=== PATIENT | male | born 1950 | race Caucasian/White ===

== ENCOUNTER 2022-02-02 15:18 | Inpatient (IN) ==
[2022-02-02] MEDS ORDERED: *HR* FentaNYL (PF) 100 MCG/2 ML VIAL IVP ONE (15:26)
[2022-02-02 16:56] LABS: Troponin I 0.11 ng/mL (< 0.04)
[2022-02-02 17:25] LABS: Alanine Aminotransferase 9 Units/L (7-52); Albumin 3.9 g/dL (3.5-5.7); Albumin/Globulin Ratio 1.7 (1.1-2.2); Alkaline Phosphatase 59 Units/L (34-104); Aspartate Amino Transferase 19 Units/L (13-39); Bilirubin,Direct 0.1 mg/dL (0.0-0.2); Bilirubin,Indirect 0.3 mg/dL (0.0-1.0); Bilirubin,Total 0.4 mg/dL (0.3-1.0); Globulin 2.3 g/dL (2.4-3.5); Lipase 21 Units/L (11-82); Total Protein 6.2 g/dL (6.4-8.9)
[2022-02-02] MEDS ORDERED: *HR* Heparin 5,000 UNIT/ML VIAL IVP ONE (18:41)
[2022-02-02] MEDS ORDERED: *HR* Heparin 5,000 UNIT/ML VIAL IVP PRN ×2 (18:41)
[2022-02-02] MEDS: Heparin 25,000UNIT/250ML 1/2NS 25,000 UNIT/250 ML IV.SOLN IVC SCH (19:05)
[2022-02-02 20:57] LABS: Heparin anti-factor XA UFH 0.87 IU/mL (0.30-0.70)
[2022-02-02 20:58] LABS: INR 1.1; Prothrombin Time 11.8 Seconds (9.4-12.1)
[2022-02-02 21:53] LABS: Basophils % 0.6 %; Eosinophils # 0.1 K/mcL (0.0-0.6); Eosinophils % 1.9 %; Hematocrit 35.8 % (37.5-50.1); Hemoglobin 11.7 g/dL (12.9-16.9); Immature Granulocytes % 0.2 % (0-4); Lymphocytes # 1.2 K/mcL (0.6-4.6); Mean Corpuscular HGB Conc 32.7 g/dL (31.6-35.5); Mean Corpuscular Hemoglobin 32.1 pg (28.0-33.3); Mean Corpuscular Volume 98.1 fL (83.0-100.0); Mean Platelet Volume 12.5 fL (9.4-12.4); Monocytes # 0.5 K/mcL (0.0-1.3); Monocytes % 8.7 %; Neutrophils # 4.2 K/mcL (1.6-8.9); Platelet Count 126 K/mcL (140-400); Red Blood Count 3.65 M/mcL (4.19-5.50); Red Cell Distribution Width 13.7 % (11.5-14.5); Segmented Neutrophils % 68.6 %; White Blood Count 6.2 K/mcL (4.3-11.1)
[2022-02-02] MEDS ORDERED: *HR* Dextrose 50 % in Water (Syg) 50 ML SYRINGE IVP PRN (22:05)
[2022-02-02] MEDS ORDERED: Dextrose Gel 15 GM/37.5 ML TUBE PO PRN ×2 (22:05)
[2022-02-02] MEDS ORDERED: Nitroglycerin 0.4 MG TAB.SUBL SL PRN (22:05)
[2022-02-02] MEDS ORDERED: D5% in Water 1,000 ML IVC PRN (22:05)
[2022-02-02] MEDS ORDERED: Perflutren Lipid Microsphere 1.3 ML in 0.9 % Sodium Chloride 8.7 ML IVP PRN (22:07)
[2022-02-02] MEDS ORDERED: Naloxone 0.4 MG/ML INJ IVP PRN (22:09)
[2022-02-02] MEDS ORDERED: Melatonin 3 MG TABLET PO PRN (22:09)
[2022-02-02] MEDS ORDERED: Acetaminophen 325 MG TABLET PO PRN (22:09)
[2022-02-02] MEDS ORDERED: Ondansetron 4 MG/2 ML VIAL IVP PRN (22:09)
[2022-02-02 22:28] LABS: BUN/Creatinine Ratio 13 (6-26); Blood Urea Nitrogen 18 mg/dL (8-23); Calcium 9.1 mg/dL (8.6-10.3); Carbon Dioxide 21 mEq/L (23-29); Chloride 107 mEq/L (98-107); Glucose 134 mg/dL (70-105); Osmolality,Calculated 286 (280-300); Potassium 4.2 mEq/L (3.5-5.1); Sodium 136 mEq/L (136-145); eGFR For African Americans > 60 (> 60); eGFR For Non-African Americans 50 (> 60)
[2022-02-02] MEDS: Insulin LISPRO 300 UNITS/3 ML VIAL SUBQ SCH (23:43)
[2022-02-03 00:46] LABS: Bilirubin,Urine Negative (Negative); Blood,Urine Negative (Negative); Clarity,Urine Clear (Clear); Color,Urine Colorless (Yellow); Glucose,Urine (UA) 30 mg/dL (Normal); Ketones,Urine Negative (Negative); Leukocyte Esterase,Urine Negative (Negative); Nitrite,Urine Negative (Negative); Protein,Urine Negative (Neg-Trace); RBC,Urine 0-3 per hpf (0-3); Specific Gravity,Urine 1.012 (1.010-1.025); Urobilinogen,Urine Normal (Normal); WBC,Urine 0-3 per hpf (0-3)
[2022-02-03 00:50] LABS: Amphetamine Screen,Urine Negative ng/mL (Cutoff=1000); Barbiturate Screen,Urine Negative ng/mL (Cutoff=200); Benzodiazepines Screen,Urine Negative ng/mL (Cutoff=200); Cannabinoid Screen,Urine Negative ng/mL (Cutoff = 50); Cocaine Screen,Urine Negative ng/mL (Cutoff= 300); Opiate Screen,Urine Negative ng/mL (Cutoff=300); Phencyclidine Screen,Urine Negative ng/mL (Cutoff=25)
[2022-02-03 01:07] LABS: Hemoglobin 11.3 g/dL (12.9-16.9)
[2022-02-03 01:09] LABS: Hematocrit 34.5 % (37.5-50.1); Immature Platelets 8.3 % (1.1-6.1); Mean Corpuscular HGB Conc 32.8 g/dL (31.6-35.5); Mean Corpuscular Hemoglobin 31.7 pg (28.0-33.3); Mean Corpuscular Volume 96.6 fL (83.0-100.0); Mean Platelet Volume 11.9 fL (9.4-12.4); Red Blood Count 3.57 M/mcL (4.19-5.50); Red Cell Distribution Width 13.6 % (11.5-14.5)
[2022-02-03 01:28] LABS: % Iron Saturation 18 % (20-55); Iron 45 mcg/dL (65-175); Transferrin 178 mg/dL (203-362)
[2022-02-03 01:29] LABS: Chol/HDL Ratio 1.8 (0-4.9); Magnesium 1.8 mg/dL (1.6-2.6); Potassium 4.4 mEq/L (3.5-5.1)
[2022-02-03 01:34] LABS: Troponin I 0.11 ng/mL (< 0.04)
[2022-02-03 01:46] LABS: Ferritin 180 ng/mL (20-250)
[2022-02-03 02:19] LABS: Estimated Average Glucose 169 mg/dl; Hemoglobin A1C 7.5 %
[2022-02-03] MEDS: Insulin LISPRO 300 UNITS/3 ML VIAL SUBQ SCH ×4 (05:40→23:18)
[2022-02-03 05:47] LABS: Folate 15.6 ng/mL (3.0-16.0)
[2022-02-03] MEDS: Aspirin Enteric Coated 81 MG Tablet PO SCH (07:47)
[2022-02-03] MEDS: Cholecalciferol (D-3) 1,000 UNIT (25MCG) TABLET PO SCH (07:47)
[2022-02-03] MEDS: lisinopriL 20 MG TABLET PO SCH (07:48)
[2022-02-03] MEDS: Morphine Sulfate 2 MG/ML SYRINGE IVP PRN ×2 (15:28→19:47)
[2022-02-03] MEDS ORDERED: INSULIN PUMP SUBQ SCH (17:00)
[2022-02-03] MEDS: Heparin 25,000UNIT/250ML 1/2NS 25,000 UNIT/250 ML IV.SOLN IVC SCH (21:59)
[2022-02-04 03:26] LABS: Hematocrit 35.5 % (37.5-50.1); Hemoglobin 11.3 g/dL (12.9-16.9); Mean Corpuscular HGB Conc 31.8 g/dL (31.6-35.5); Mean Corpuscular Volume 97.3 fL (83.0-100.0); Mean Platelet Volume 12.1 fL (9.4-12.4); Platelet Count 138 K/mcL (140-400); Red Blood Count 3.65 M/mcL (4.19-5.50); Red Cell Distribution Width 13.7 % (11.5-14.5); White Blood Count 5.3 K/mcL (4.3-11.1)
[2022-02-04 03:46] LABS: Calcium 8.9 mg/dL (8.6-10.3); Potassium 3.9 mEq/L (3.5-5.1)
[2022-02-04] MEDS: Insulin LISPRO 300 UNITS/3 ML VIAL SUBQ SCH ×2 (05:33→12:02)
[2022-02-04] MEDS ORDERED: Cyanocobalamin (B-12) 1,000 MCG TABLET PO SCH (09:00)
[2022-02-04] MEDS: Cholecalciferol (D-3) 1,000 UNIT (25MCG) TABLET PO SCH (09:06)
[2022-02-04] MEDS: lisinopriL 20 MG TABLET PO SCH (09:06)
[2022-02-04] MEDS: Aspirin Enteric Coated 81 MG Tablet PO SCH (09:06)
[2022-02-04] MEDS: Morphine Sulfate 2 MG/ML SYRINGE IVP PRN ×4 (09:06→20:07)
[2022-02-04] MEDS ORDERED: *HR* Heparin 10,000 UNIT/10 ML VIAL ONE (11:29)
[2022-02-04] MEDS ORDERED: Nitroglycerin 1,000 MCG/5 ML VIAL IV ONE (11:29)
[2022-02-04] MEDS ORDERED: 0.9 % Sodium Chloride 2,000 ML ONE (11:29)
[2022-02-04] MEDS ORDERED: Iopamidol - 370 200 ML INFUS..BTL ONE (11:29)
[2022-02-04] MEDS ORDERED: Heparin 1,000 UNITS/500 mL 500 ML ONE ×2 (11:29→12:48)
[2022-02-04] MEDS ORDERED: *HR* FentaNYL (PF) 100 MCG/2 ML VIAL ONE (12:15)
[2022-02-04] MEDS ORDERED: *HR* Midazolam HCl 2 MG/2 ML VIAL ONE (12:16)
[2022-02-04] MEDS ORDERED: Morphine Sulfate 2 MG/ML SYRINGE ONE (14:25)
[2022-02-04] MEDS ORDERED: *HR* Heparin 5,000 UNIT/ML VIAL IVP PRN ×2 (15:17)
[2022-02-04] MEDS ORDERED: D5% in Water 1,000 ML IVC PRN (15:17)
[2022-02-04] MEDS ORDERED: Ondansetron 4 MG/2 ML VIAL IVP PRN (15:17)
[2022-02-04] MEDS ORDERED: Nitroglycerin 0.4 MG TAB.SUBL SL PRN (15:17)
[2022-02-04] MEDS ORDERED: Naloxone 0.4 MG/ML INJ IVP PRN (15:17)
[2022-02-04] MEDS ORDERED: Melatonin 3 MG TABLET PO PRN (15:17)
[2022-02-04] MEDS ORDERED: Acetaminophen 325 MG TABLET PO PRN (15:17)
[2022-02-04] MEDS ORDERED: Dextrose Gel 15 GM/37.5 ML TUBE PO PRN ×2 (15:17)
[2022-02-04] MEDS ORDERED: *HR* Dextrose 50 % in Water (Syg) 50 ML SYRINGE IVP PRN (15:17)
[2022-02-04] MEDS: INSULIN PUMP SUBQ SCH (16:25)
[2022-02-04] MEDS: Heparin 25,000UNIT/250ML 1/2NS 25,000 UNIT/250 ML IV.SOLN IVC SCH (17:53)
[2022-02-04] MEDS ORDERED: Insulin LISPRO 300 UNITS/3 ML VIAL SUBQ SCH (18:00)
[2022-02-04] MEDS ORDERED: Insulin DETEMIR 100 UNIT/ML X5UNITS SUBQ ONE (20:04)
[2022-02-04] MEDS ORDERED: Insulin LISPRO 300 UNITS/3 ML VIAL SUBQ ONE (21:00)
[2022-02-05] MEDS: Insulin LISPRO 300 UNITS/3 ML VIAL SUBQ SCH ×7 (00:29→23:31)
[2022-02-05] MEDS: Morphine Sulfate 2 MG/ML SYRINGE IVP PRN ×2 (01:24→08:01)
[2022-02-05] MEDS: INSULIN PUMP SUBQ SCH (08:07)
[2022-02-05] MEDS: Aspirin Enteric Coated 81 MG Tablet PO SCH (08:12)
[2022-02-05] MEDS: Cyanocobalamin (B-12) 1,000 MCG TABLET PO SCH (08:12)
[2022-02-05] MEDS: Cholecalciferol (D-3) 1,000 UNIT (25MCG) TABLET PO SCH (08:12)
[2022-02-05 09:56] LABS: Basophils % 0.3 %; Eosinophils # 0.1 K/mcL (0.0-0.6); Hematocrit 33.6 % (37.5-50.1); Hemoglobin 10.6 g/dL (12.9-16.9); Immature Granulocytes % 0.3 % (0-4); Lymphocytes % 12.6 %; Mean Corpuscular HGB Conc 31.5 g/dL (31.6-35.5); Mean Corpuscular Hemoglobin 31.2 pg (28.0-33.3); Mean Corpuscular Volume 98.8 fL (83.0-100.0); Mean Platelet Volume 12.1 fL (9.4-12.4); Monocytes # 0.9 K/mcL (0.0-1.3); Monocytes % 10.2 %; Platelet Count 123 K/mcL (140-400); Red Cell Distribution Width 14.1 % (11.5-14.5); Segmented Neutrophils % 75.6 %
[2022-02-05 09:59] LABS: Lymphocytes # 1.2 K/mcL (0.6-4.6); Neutrophils # 6.9 K/mcL (1.6-8.9); White Blood Count 9.1 K/mcL (4.3-11.1)
[2022-02-05 10:44] LABS: Bilirubin,Urine Negative (Negative); Blood,Urine Negative (Negative); Clarity,Urine Clear (Clear); Color,Urine Yellow (Yellow); Glucose,Urine (UA) Normal (Normal); Ketones,Urine Negative (Negative); Leukocyte Esterase,Urine Negative (Negative); Nitrite,Urine Negative (Negative); Protein,Urine Trace mg/dL (Neg-Trace); Specific Gravity,Urine > 1.030 (1.010-1.025); Urobilinogen,Urine Normal (Normal)
[2022-02-05] MEDS: Metoprolol XL (24 HR) Succ 25 MG TAB.ER.24H PO SCH ×2 (12:06→20:46)
[2022-02-05] MEDS: *HR* OxyCODONE/APAP 5/325 TABLET PO PRN ×3 (14:34→23:38)
[2022-02-05] MEDS: Heparin 25,000UNIT/250ML 1/2NS 25,000 UNIT/250 ML IV.SOLN IVC SCH (17:01)
[2022-02-06] MEDS: Insulin LISPRO 300 UNITS/3 ML VIAL SUBQ SCH ×6 (03:23→23:10)
[2022-02-06] MEDS: *HR* OxyCODONE/APAP 5/325 TABLET PO PRN ×4 (08:13→20:17)
[2022-02-06] MEDS: Metoprolol XL (24 HR) Succ 25 MG TAB.ER.24H PO SCH ×2 (08:13→20:17)
[2022-02-06] MEDS: Cyanocobalamin (B-12) 1,000 MCG TABLET PO SCH (08:14)
[2022-02-06] MEDS: Aspirin Enteric Coated 81 MG Tablet PO SCH (08:14)
[2022-02-06] MEDS: Cholecalciferol (D-3) 1,000 UNIT (25MCG) TABLET PO SCH (08:14)
[2022-02-06] MEDS ORDERED: Perflutren Lipid Microsphere 1.3 ML in 0.9 % Sodium Chloride 8.7 ML IVP PRN (09:11)
[2022-02-06] MEDS: INSULIN PUMP SUBQ SCH (09:29)
[2022-02-06 10:19] LABS: Basophils % 0.4 %; Eosinophils # 0.1 K/mcL (0.0-0.6); Eosinophils % 1.3 %; Hematocrit 31.4 % (37.5-50.1); Hemoglobin 10.1 g/dL (12.9-16.9); Immature Granulocytes % 0.4 % (0-4); Lymphocytes % 11.5 %; Mean Corpuscular HGB Conc 32.2 g/dL (31.6-35.5); Mean Corpuscular Hemoglobin 31.5 pg (28.0-33.3); Mean Corpuscular Volume 97.8 fL (83.0-100.0); Monocytes # 0.9 K/mcL (0.0-1.3); Monocytes % 10.8 %; Neutrophils # 6.5 K/mcL (1.6-8.9); Platelet Count 106 K/mcL (140-400); Red Blood Count 3.21 M/mcL (4.19-5.50); Red Cell Distribution Width 13.9 % (11.5-14.5); Segmented Neutrophils % 75.6 %; White Blood Count 8.5 K/mcL (4.3-11.1)
[2022-02-06 10:38] LABS: Calcium 8.2 mg/dL (8.6-10.3); Potassium 4.7 mEq/L (3.5-5.1)
[2022-02-06] MEDS ORDERED: 0.9 % Sodium Chloride 1,000 ML IVC SCH (13:30)
[2022-02-06 16:31] LABS: Basophils % 0.4 %; Eosinophils # 0.2 K/mcL (0.0-0.6); Eosinophils % 2.2 %; Hematocrit 32.1 % (37.5-50.1); Hemoglobin 10.2 g/dL (12.9-16.9); Immature Granulocytes % 0.4 % (0-4); Mean Corpuscular HGB Conc 31.8 g/dL (31.6-35.5); Mean Corpuscular Hemoglobin 31.3 pg (28.0-33.3); Mean Corpuscular Volume 98.5 fL (83.0-100.0); Mean Platelet Volume 12.3 fL (9.4-12.4); Monocytes # 0.9 K/mcL (0.0-1.3); Monocytes % 12.3 %; Neutrophils # 5.2 K/mcL (1.6-8.9); Platelet Count 126 K/mcL (140-400); Red Blood Count 3.26 M/mcL (4.19-5.50); Red Cell Distribution Width 13.9 % (11.5-14.5); Segmented Neutrophils % 71.7 %; White Blood Count 7.3 K/mcL (4.3-11.1)
[2022-02-06 16:40] LABS: INR 1.1; Prothrombin Time 12.4 Seconds (9.4-12.1)
[2022-02-06 16:49] LABS: Calcium 8.6 mg/dL (8.6-10.3); Chol/HDL Ratio 1.8 (0-4.9); Potassium 4.6 mEq/L (3.5-5.1)
[2022-02-06 16:54] LABS: Activated Partial Thrombo Time 145.5 Seconds (26.0-36.0)
[2022-02-06 17:06] LABS: Heparin anti-factor XA UFH 0.4 IU/mL (0.30-0.70)
[2022-02-06] MEDS: Chlorhexidine Rinse 15 ML MOUTHWASH MM SCH (20:17)
[2022-02-07] MEDS: Heparin 25,000UNIT/250ML 1/2NS 25,000 UNIT/250 ML IV.SOLN IVC SCH (01:01)
[2022-02-07] MEDS: Insulin LISPRO 300 UNITS/3 ML VIAL SUBQ SCH (03:54)
[2022-02-07 04:51] LABS: Basophils % 0.5 %; Eosinophils # 0.2 K/mcL (0.0-0.6); Hematocrit 29.6 % (37.5-50.1); Hemoglobin 9.5 g/dL (12.9-16.9); Immature Granulocytes % 0.5 % (0-4); Lymphocytes % 16.6 %; Mean Corpuscular HGB Conc 32.1 g/dL (31.6-35.5); Mean Corpuscular Hemoglobin 31.5 pg (28.0-33.3); Mean Platelet Volume 12.4 fL (9.4-12.4); Monocytes # 0.9 K/mcL (0.0-1.3); Monocytes % 15.6 %; Neutrophils # 3.8 K/mcL (1.6-8.9); Platelet Count 113 K/mcL (140-400); Red Blood Count 3.02 M/mcL (4.19-5.50); Red Cell Distribution Width 13.8 % (11.5-14.5); Segmented Neutrophils % 63.8 %
[2022-02-07 04:58] LABS: Heparin anti-factor XA UFH 0.4 IU/mL (0.30-0.70); INR 1.1; Prothrombin Time 12.1 Seconds (9.4-12.1)
[2022-02-07 05:10] LABS: Albumin 3.3 g/dL (3.5-5.7); Albumin/Globulin Ratio 1.4 (1.1-2.2); Bilirubin,Total 0.4 mg/dL (0.3-1.0); Globulin 2.3 g/dL (2.4-3.5); Potassium 5.2 mEq/L (3.5-5.1); Total Protein 5.6 g/dL (6.4-8.9)
[2022-02-07 05:13] LABS: Activated Partial Thrombo Time 149.3 Seconds (26.0-36.0)
[2022-02-07] MEDS ORDERED: DOBUTamine 1,000 MG/250 ML BAG ONE (05:51)
[2022-02-07] MEDS ORDERED: NiCARdipine 2.5 MG/10 ML Syringe IVPB ONE (05:51)
[2022-02-07] MEDS ORDERED: *HR* FentaNYL (PF) 1,000 MCG/20 ML VIAL ONE (05:55)
[2022-02-07] MEDS ORDERED: *HR* Midazolam HCl 5 MG/5 ML VIAL IVP ONE (05:56)
[2022-02-07] MEDS ORDERED: *HR* Norepinephrine 4 MG/4 ML VIAL IVC ONE (05:57)
[2022-02-07] MEDS ORDERED: *HR* Rocuronium Bromide 50 MG/5 ML VIAL ONE (05:57)
[2022-02-07] MEDS ORDERED: niCARdipine 20 MG/200 ML MLS IVC ONE (05:57)
[2022-02-07] MEDS ORDERED: Tranexamic Acid 1,000 MG/10 ML VIAL ONE (05:59)
[2022-02-07] MEDS ORDERED: *HR* Etomidate 20 MG/10 ML AMPUL IVP ONE (05:59)
[2022-02-07] MEDS ORDERED: Aspirin 81 MG TAB.CHEW PO ONE ×2 (06:00→16:00)
[2022-02-07] MEDS ORDERED: CeFAZolin Syr 2,000MG/20 ML 2,000 MG/20 ML SYRINGE IVPB ONE ×2 (06:00→12:15)
[2022-02-07] MEDS ORDERED: Protamine Sulfate 250 MG/25 ML VIAL IVP ONE (06:05)
[2022-02-07] MEDS ORDERED: Calcium Gluconate 1,000 MG/10 ML VIAL ONE (06:05)
[2022-02-07] MEDS ORDERED: Papaverine 60 MG/2 ML VIAL IVP ONE (06:08)
[2022-02-07] MEDS: Chlorhexidine Rinse 15 ML MOUTHWASH MM SCH ×2 (06:12→19:50)
[2022-02-07] MEDS ORDERED: Heparin 15,000 UNIT in 0.9 % Sodium Chloride 500 ML IV ONE (07:00)
[2022-02-07] MEDS ORDERED: Norepinephrine 4 MG in 0.9 % Sodium Chloride 250 ML IVC PRN (07:00)
[2022-02-07] MEDS ORDERED: Buckersberg's Blood Cardioplegia PF ONE (07:00)
[2022-02-07] MEDS ORDERED: del Nido Cardioplegia Solution PF ONE ×2 (07:00)
[2022-02-07 07:32] LABS: ABG Base Excess -5 mEq/L (-2 to 3); ABG Chloride 106 mEq/L (98-107); ABG Glucose 275 mg/dL (60-95); ABG HCO3 21 mEq/L (21-27); ABG Ionized Calcium 1.12 mmol/L (1.15-1.35); ABG Oxygen Saturation 100 % (95-98); ABG PCO2 44 mmHg (35-45); ABG PO2 410 mmHg (85-104); ABG TCO2 23 mEq/L (20-26)
[2022-02-07 09:15] LABS: ABG Base Excess -6 mEq/L (-2 to 3); ABG Chloride 106 mEq/L (98-107); ABG Glucose 294 mg/dL (60-95); ABG HCO3 20 mEq/L (21-27); ABG Ionized Calcium 1.14 mmol/L (1.15-1.35); ABG Oxygen Saturation 97 % (95-98); ABG PCO2 44 mmHg (35-45); ABG PH 7.28 pH Units (7.32-7.45); ABG PO2 101 mmHg (85-104); ABG TCO2 22 mEq/L (20-26)
[2022-02-07] MEDS ORDERED: Potassium Chloride 40 MEQ/200 ML BAG IVPB PRN (09:20)
[2022-02-07] MEDS ORDERED: *HR* Dextrose 50 % in Water (Syg) 50 ML SYRINGE IVP PRN (09:20)
[2022-02-07] MEDS ORDERED: Calcium Gluconate 1gm/50mL 1 GM/50 ML BAG IVPB PRN (09:20)
[2022-02-07] MEDS ORDERED: Ondansetron 4 MG/2 ML VIAL IVP PRN (09:31)
[2022-02-07 10:32] LABS: ABG Base Excess -2 mEq/L (-2 to 3); ABG Chloride 103 mEq/L (98-107); ABG Glucose 232 mg/dL (60-95); ABG HCO3 22 mEq/L (21-27); ABG Ionized Calcium 0.92 mmol/L (1.15-1.35); ABG Oxygen Saturation 100 % (95-98); ABG PCO2 36 mmHg (35-45); ABG PO2 602 mmHg (85-104); ABG TCO2 23 mEq/L (20-26)
[2022-02-07 10:49] LABS: ABG Base Excess -1 mEq/L (-2 to 3); ABG Chloride 100 mEq/L (98-107); ABG Glucose 229 mg/dL (60-95); ABG HCO3 24 mEq/L (21-27); ABG Ionized Calcium 0.93 mmol/L (1.15-1.35); ABG PCO2 38 mmHg (35-45); ABG PH 7.41 pH Units (7.32-7.45); ABG PO2 > 630 mmHg (85-104); ABG TCO2 25 mEq/L (20-26)
[2022-02-07 11:06] LABS: ABG Base Excess -4 mEq/L (-2 to 3); ABG Chloride 109 mEq/L (98-107); ABG Glucose 184 mg/dL (60-95); ABG HCO3 21 mEq/L (21-27); ABG Ionized Calcium 0.82 mmol/L (1.15-1.35); ABG Oxygen Saturation 100 % (95-98); ABG PCO2 34 mmHg (35-45); ABG PH 7.39 pH Units (7.32-7.45); ABG PO2 536 mmHg (85-104); ABG TCO2 22 mEq/L (20-26)
[2022-02-07] MEDS ORDERED: *HR* Phenylephrine 10 MG/ML VIAL IVC ONE (11:17)
[2022-02-07] MEDS ORDERED: *HR* Heparin 10,000 UNIT/10 ML VIAL IR ONE (11:17)
[2022-02-07] MEDS ORDERED: *HR* Magnesium Sulfate 2 GM/50 ML PIGGYBACK IVPB ONE (11:17)
[2022-02-07] MEDS ORDERED: Albumin Human 25% 25 GM/100 ML IV.SOLN IVPB ONE (11:17)
[2022-02-07] MEDS ORDERED: Lidocaine 2% Syringe 100 MG/5 ML IVP ONE (11:17)
[2022-02-07 11:31] LABS: ABG Base Excess -2 mEq/L (-2 to 3); ABG Chloride 110 mEq/L (98-107); ABG Glucose 199 mg/dL (60-95); ABG HCO3 23 mEq/L (21-27); ABG Ionized Calcium 1.35 mmol/L (1.15-1.35); ABG Oxygen Saturation 100 % (95-98); ABG PCO2 42 mmHg (35-45); ABG PH 7.35 pH Units (7.32-7.45); ABG PO2 609 mmHg (85-104); ABG TCO2 24 mEq/L (20-26)
[2022-02-07] MEDS ORDERED: ceFAZolin 2,000 MG in 0.9 % Sodium Chloride 100 ML IVPB ONE (12:02)
[2022-02-07 12:14] LABS: ABG Base Excess -4 mEq/L (-2 to 3); ABG Chloride 109 mEq/L (98-107); ABG Glucose 199 mg/dL (60-95); ABG HCO3 21 mEq/L (21-27); ABG Ionized Calcium 1.37 mmol/L (1.15-1.35); ABG Oxygen Saturation 97 % (95-98); ABG PCO2 39 mmHg (35-45); ABG PH 7.34 pH Units (7.32-7.45); ABG PO2 91 mmHg (85-104); ABG TCO2 22 mEq/L (20-26)
[2022-02-07 13:27] LABS: ABG Base Excess -6 mEq/L (-2 to 3); ABG HCO3 21 mEq/L (21-27); ABG Oxygen Saturation 99 % (95-98); ABG PCO2 43 mmHg (35-45); ABG PH 7.29 pH Units (7.32-7.45); ABG PO2 131 mmHg (85-104); ABG TCO2 22 mEq/L (20-26); Blood Gas Modality ASSIST CONTROL; Blood Gas VT 600 cc
[2022-02-07] MEDS: *HR* FentaNYL (PF) 100 MCG/2 ML VIAL IVP PRN ×4 (13:30→22:19)
[2022-02-07] MEDS: *HR* OxyCODONE/APAP 5/325 TABLET PO PRN ×2 (13:31→21:57)
[2022-02-07 13:35] LABS: Hematocrit 36.5 % (37.5-50.1); Hemoglobin 12.1 g/dL (12.9-16.9); Mean Corpuscular HGB Conc 33.2 g/dL (31.6-35.5); Mean Corpuscular Hemoglobin 30.8 pg (28.0-33.3); Mean Corpuscular Volume 92.9 fL (83.0-100.0); Mean Platelet Volume 12.5 fL (9.4-12.4); Red Blood Count 3.93 M/mcL (4.19-5.50); Red Cell Distribution Width 14.5 % (11.5-14.5); White Blood Count 9.2 K/mcL (4.3-11.1)
[2022-02-07 13:36] LABS: Platelet Count 70 K/mcL (140-400)
[2022-02-07 13:53] LABS: Calcium 8.4 mg/dL (8.6-10.3); Potassium 4.8 mEq/L (3.5-5.1)
[2022-02-07 14:15] LABS: INR 1.2; Prothrombin Time 13.4 Seconds (9.4-12.1)
[2022-02-07 14:19] LABS: Activated Partial Thrombo Time 35.9 Seconds (26.0-36.0)
[2022-02-07] MEDS: Norepinephrine 4 MG/254 ML IV.SOLN IVC SCH ×2 (15:10→23:55)
[2022-02-07] MEDS: DOBUTamine 1,000 MG/250 ML BAG IVC SCH (15:10)
[2022-02-07] MEDS: Nitroprusside 50 MG in D5% in Water 250 ML IVC SCH ×2 (15:13→18:05)
[2022-02-07] MEDS: Insulin Regular, Human 100 UNIT/ML IV PRN ×2 (15:14→16:04)
[2022-02-07 15:18] LABS: Basophils # 0.4 K/mcL (0.0-0.2); Eosinophils # 0.4 K/mcL (0.0-0.6); Lymphocytes # 0.6 K/mcL (0.6-4.6); Monocytes # 1.1 K/mcL (0.0-1.3); Neutrophils # 6.8 K/mcL (1.6-8.9); Platelet Estimate Decreased (Normal); Poikilocytosis 1+ (Not Present)
[2022-02-07 16:47] LABS: ABG Base Excess -6 mEq/L (-2 to 3); ABG HCO3 20 mEq/L (21-27); ABG Oxygen Saturation 97 % (95-98); ABG PCO2 42 mmHg (35-45); ABG PH 7.29 pH Units (7.32-7.45); ABG PO2 102 mmHg (85-104); ABG TCO2 21 mEq/L (20-26); Blood Gas Modality ASSIST CONTROL; Blood Gas Pressure Support 5 cm H2O
[2022-02-07] MEDS: Albumin Human 5% 12.5 GM/250 ML IV.SOLN IVPB PRN ×2 (17:54→18:02)
[2022-02-07 18:27] LABS: ABG Base Excess -4 mEq/L (-2 to 3); ABG HCO3 22 mEq/L (21-27); ABG Oxygen Saturation 97 % (95-98); ABG PCO2 39 mmHg (35-45); ABG PH 7.35 pH Units (7.32-7.45); ABG PO2 93 mmHg (85-104); ABG TCO2 23 mEq/L (20-26)
[2022-02-07] MEDS: CeFAZolin 2 GM/120 ML BAG IVPB SCH (19:50)
[2022-02-08] MEDS: *HR* FentaNYL (PF) 100 MCG/2 ML VIAL IVP PRN ×3 (01:17→08:17)
[2022-02-08] MEDS: *HR* OxyCODONE/APAP 5/325 TABLET PO PRN ×5 (02:15→20:19)
[2022-02-08] MEDS: CeFAZolin 2 GM/120 ML BAG IVPB SCH ×3 (03:30→20:13)
[2022-02-08 04:19] LABS: Calcium 8.1 mg/dL (8.6-10.3); Magnesium 2.4 mg/dL (1.6-2.6); Potassium 4.8 mEq/L (3.5-5.1)
[2022-02-08 04:25] LABS: Immature Granulocytes % 0.3 % (0-4); Red Cell Distribution Width 15.2 % (11.5-14.5); Segmented Neutrophils % 83.2 %
[2022-02-08 04:27] LABS: Basophils % 0.3 %; Immature Platelets 11.8 % (1.1-6.1); Lymphocytes # 0.5 K/mcL (0.6-4.6); Lymphocytes % 4.5 %; Mean Corpuscular HGB Conc 33.3 g/dL (31.6-35.5); Mean Corpuscular Hemoglobin 30.7 pg (28.0-33.3); Mean Corpuscular Volume 92.2 fL (83.0-100.0); Mean Platelet Volume 12.5 fL (9.4-12.4); Monocytes # 1.2 K/mcL (0.0-1.3); Monocytes % 11.7 %; Neutrophils # 8.6 K/mcL (1.6-8.9); Red Blood Count 3.58 M/mcL (4.19-5.50); White Blood Count 10.3 K/mcL (4.3-11.1)
[2022-02-08 04:32] LABS: INR 1.1; Prothrombin Time 11.9 Seconds (9.4-12.1)
[2022-02-08 04:35] LABS: Activated Partial Thrombo Time 36.8 Seconds (26.0-36.0); Platelet Count 85 K/mcL (140-400)
[2022-02-08] MEDS: Chlorhexidine Rinse 15 ML MOUTHWASH MM SCH ×2 (07:50→20:12)
[2022-02-08] MEDS: *HR* Enoxaparin 30 MG/0.3 ML SYRINGE SQ SCH (07:50)
[2022-02-08] MEDS: Gabapentin 300 MG CAPSULE PO SCH ×3 (09:33→20:11)
[2022-02-08] MEDS ORDERED: D5% in Water 1,000 ML IVC PRN (11:45)
[2022-02-08] MEDS ORDERED: Dextrose Gel 15 GM/37.5 ML TUBE PO PRN ×2 (11:45)
[2022-02-08] MEDS ORDERED: *HR* Dextrose 50 % in Water (Syg) 50 ML SYRINGE IVP PRN (11:45)
[2022-02-08] MEDS: Insulin LISPRO 300 UNITS/3 ML VIAL SUBQ SCH ×2 (11:53→16:06)
[2022-02-08] MEDS: DOBUTamine 1,000 MG/250 ML BAG IVC SCH (11:54)
[2022-02-08] MEDS ORDERED: *HR* FentaNYL (PF) 100 MCG/2 ML VIAL IVP ONE ×2 (15:44→15:50)
[2022-02-08] MEDS ORDERED: Insulin LISPRO 300 UNITS/3 ML VIAL SUBQ SCH (21:00)
[2022-02-08] MEDS: Norepinephrine 4 MG/254 ML IV.SOLN IVC SCH (22:57)
[2022-02-09] MEDS: *HR* OxyCODONE/APAP 5/325 TABLET PO PRN ×3 (03:19→22:25)
[2022-02-09] MEDS: CeFAZolin 2 GM/120 ML BAG IVPB SCH ×2 (03:20→11:47)
[2022-02-09 03:43] LABS: Hemoglobin 10.2 g/dL (12.9-16.9); Mean Corpuscular Volume 96.4 fL (83.0-100.0); Red Cell Distribution Width 15.1 % (11.5-14.5)
[2022-02-09 03:45] LABS: Basophils % 0.2 %; Hematocrit 32.1 % (37.5-50.1); Immature Granulocytes % 0.5 % (0-4); Immature Platelets 8.4 % (1.1-6.1); Lymphocytes # 0.6 K/mcL (0.6-4.6); Lymphocytes % 5.2 %; Mean Corpuscular HGB Conc 31.8 g/dL (31.6-35.5); Mean Corpuscular Hemoglobin 30.6 pg (28.0-33.3); Mean Platelet Volume 12.3 fL (9.4-12.4); Monocytes # 1.4 K/mcL (0.0-1.3); Monocytes % 13.1 %; Red Blood Count 3.33 M/mcL (4.19-5.50)
[2022-02-09 03:46] LABS: Neutrophils # 8.9 K/mcL (1.6-8.9); Platelet Count 95 K/mcL (140-400)
[2022-02-09 03:58] LABS: Calcium 7.9 mg/dL (8.6-10.3); Magnesium 2.3 mg/dL (1.6-2.6); Potassium 5.1 mEq/L (3.5-5.1)
[2022-02-09] MEDS: *HR* Enoxaparin 30 MG/0.3 ML SYRINGE SQ SCH (06:16)
[2022-02-09] MEDS: Gabapentin 300 MG CAPSULE PO SCH ×3 (08:02→21:16)
[2022-02-09] MEDS: DOBUTamine 1,000 MG/250 ML BAG IVC SCH (08:03)
[2022-02-09] MEDS: Nitroprusside 50 MG in D5% in Water 250 ML IVC SCH (08:03)
[2022-02-09] MEDS: Chlorhexidine Rinse 15 ML MOUTHWASH MM SCH ×2 (08:03→21:15)
[2022-02-09] MEDS: Insulin LISPRO 300 UNITS/3 ML VIAL SUBQ SCH ×2 (08:22→19:14)
[2022-02-09] MEDS ORDERED: Furosemide 40 MG/4 ML VIAL IVP ONE (09:05)
[2022-02-09] MEDS ORDERED: Ondansetron 4 MG/2 ML VIAL IVP PRN (12:56)
[2022-02-09 13:23] LABS: Potassium 4.5 mEq/L (3.5-5.1)
[2022-02-09] MEDS ORDERED: Insulin DETEMIR 100 UNIT/ML X5UNITS SUBQ ONE (14:41)
[2022-02-09] MEDS ORDERED: Dextrose Gel 15 GM/37.5 ML TUBE PO PRN ×2 (16:49)
[2022-02-09] MEDS ORDERED: D5% in Water 1,000 ML IVC PRN (16:49)
[2022-02-09] MEDS ORDERED: *HR* Dextrose 50 % in Water (Syg) 50 ML SYRINGE IVP PRN (16:49)
[2022-02-09] MEDS: Aspirin Enteric Coated 81 MG Tablet PO SCH (19:14)
[2022-02-09] MEDS: Cyanocobalamin (B-12) 1,000 MCG TABLET PO SCH (19:15)
[2022-02-09] MEDS: Cholecalciferol (D-3) 1,000 UNIT (25MCG) TABLET PO SCH (19:15)
[2022-02-09] MEDS: Metoprolol XL (24 HR) Succ 25 MG TAB.ER.24H PO SCH (19:15)
[2022-02-09] MEDS ORDERED: Insulin DETEMIR 100 UNIT/ML X5UNITS SUBQ SCH (21:00)
[2022-02-10 00:56] LABS: Alpha 2 Globulin (PEP) 0.91 g/dL (0.48-1.05); Beta Globulin (PEP) 0.56 g/dL (0.48-1.10)
[2022-02-10 05:24] LABS: Eosinophils % 0.1 %; Mean Corpuscular Volume 94.4 fL (83.0-100.0)
[2022-02-10 05:26] LABS: Basophils % 0.2 %; Hematocrit 28.8 % (37.5-50.1); Hemoglobin 9.2 g/dL (12.9-16.9); Immature Platelets 7.4 % (1.1-6.1); Lymphocytes # 0.6 K/mcL (0.6-4.6); Mean Corpuscular HGB Conc 31.9 g/dL (31.6-35.5); Mean Corpuscular Hemoglobin 30.2 pg (28.0-33.3); Mean Platelet Volume 11.6 fL (9.4-12.4); Monocytes # 1.1 K/mcL (0.0-1.3); Monocytes % 10.6 %; Platelet Count 100 K/mcL (140-400); Red Blood Count 3.05 M/mcL (4.19-5.50); Red Cell Distribution Width 14.6 % (11.5-14.5); Segmented Neutrophils % 82.1 %; White Blood Count 10.3 K/mcL (4.3-11.1)
[2022-02-10 05:29] LABS: Neutrophils # 8.5 K/mcL (1.6-8.9)
[2022-02-10] MEDS ORDERED: *HR* Enoxaparin 30 MG/0.3 ML SYRINGE SQ SCH (06:00)
[2022-02-10] MEDS: *HR* OxyCODONE/APAP 5/325 TABLET PO PRN ×3 (08:13→16:58)
[2022-02-10] MEDS: Chlorhexidine Rinse 15 ML MOUTHWASH MM SCH ×2 (08:14→20:04)
[2022-02-10] MEDS: Gabapentin 300 MG CAPSULE PO SCH ×3 (08:14→20:05)
[2022-02-10] MEDS: Insulin LISPRO 300 UNITS/3 ML VIAL SUBQ SCH ×3 (08:24→16:56)
[2022-02-10 08:32] LABS: Calcium 7.2 mg/dL (8.6-10.3); Magnesium 2.1 mg/dL (1.6-2.6); Potassium 4.6 mEq/L (3.5-5.1)
[2022-02-10 10:05] LABS: Calcium 7.5 mg/dL (8.6-10.3); Potassium 4.2 mEq/L (3.5-5.1)
[2022-02-10 13:02] LABS: IFE Reflexed IFE Done; Immunoglobulin A 71 mg/dL (68-408); Immunoglobulin G 557 mg/dL (768-1632); Immunoglobulin M 100 mg/dL (35-263)
[2022-02-10] MEDS ORDERED: D5% in Water 1,000 ML IVC PRN (13:18)
[2022-02-10] MEDS ORDERED: *HR* Dextrose 50 % in Water (Syg) 50 ML SYRINGE IVP PRN (13:18)
[2022-02-10] MEDS ORDERED: Dextrose Gel 15 GM/37.5 ML TUBE PO PRN (13:18)
[2022-02-10] MEDS ORDERED: Insulin LISPRO 300 UNITS/3 ML VIAL SUBQ SCH ×3 (13:23→21:00)
[2022-02-10] MEDS ORDERED: Insulin DETEMIR 100 UNIT/ML X5UNITS SUBQ SCH ×2 (21:00)
[2022-02-11 01:36] LABS: Basophils % 0.4 %; Eosinophils % 0.7 %; Hemoglobin 9.7 g/dL (12.9-16.9)
[2022-02-11 01:39] LABS: Eosinophils # 0.1 K/mcL (0.0-0.6); Hematocrit 30.5 % (37.5-50.1); Immature Granulocytes % 1.1 % (0-4); Immature Platelets 6.9 % (1.1-6.1); Lymphocytes # 0.7 K/mcL (0.6-4.6); Lymphocytes % 8.1 %; Mean Corpuscular HGB Conc 31.8 g/dL (31.6-35.5); Mean Corpuscular Hemoglobin 30.5 pg (28.0-33.3); Mean Corpuscular Volume 95.9 fL (83.0-100.0); Mean Platelet Volume 11.4 fL (9.4-12.4); Monocytes # 0.9 K/mcL (0.0-1.3); Neutrophils # 6.4 K/mcL (1.6-8.9); Platelet Count 106 K/mcL (140-400); Red Blood Count 3.18 M/mcL (4.19-5.50); Red Cell Distribution Width 14.5 % (11.5-14.5); Segmented Neutrophils % 78.7 %; White Blood Count 8.1 K/mcL (4.3-11.1)
[2022-02-11 01:47] LABS: Calcium 7.6 mg/dL (8.6-10.3); Magnesium 2.2 mg/dL (1.6-2.6); Potassium 3.8 mEq/L (3.5-5.1)
[2022-02-11] MEDS: *HR* OxyCODONE/APAP 5/325 TABLET PO PRN ×3 (03:21→16:29)
[2022-02-11] MEDS ORDERED: *HR* Enoxaparin 40 MG/0.4 ML SYRINGE SQ SCH (06:00)
[2022-02-11] MEDS: Gabapentin 300 MG CAPSULE PO SCH ×2 (07:26→16:30)
[2022-02-11] MEDS: Chlorhexidine Rinse 15 ML MOUTHWASH MM SCH (07:27)
[2022-02-11] MEDS: Insulin LISPRO 300 UNITS/3 ML VIAL SUBQ SCH ×3 (07:30→16:46)
[2022-02-11] MEDS ORDERED: Aspirin 81 MG TAB.CHEW PO SCH (09:00)
[2022-02-11 11:15] VITALS: BP 133/66; TEMP 98.3
[2022-02-11] MEDS ORDERED: Furosemide 40 MG/4 ML VIAL IVP ONE (11:37)
[2022-02-11 16:57] VITALS: PULSE 109
[2022-02-11 16:59] VITALS: O2SAT 100
== END 2022-02-11 18:05 | disposition home or self-care (01) | DRG 231 ==
LOC: EMEROOARM 15:18 → 3BNU 15:18 → SUATTDRO 18:59 → 3BNU 19:48 → ICNU 02-04 15:41 → SUATTDRO 02-05 13:12 → 2NNU 02-09 20:33
PROVIDERS: ADMIT Family Medicine; ATTEND Family Medicine

== ENCOUNTER 2022-03-01 09:27 | Inpatient (IN) ==
[2022-03-01] MEDS ORDERED: Morphine Sulfate 2 MG/ML SYRINGE IVP ONE (11:33)
[2022-03-01 12:29] LABS: Basophils # 0.1 K/mcL (0.0-0.2); Eosinophils # 0.1 K/mcL (0.0-0.6); Eosinophils % 1.8 %; Hematocrit 36.8 % (37.5-50.1); Hemoglobin 11.5 g/dL (12.9-16.9); Immature Granulocytes % 0.3 % (0-4); Lymphocytes # 0.9 K/mcL (0.6-4.6); Lymphocytes % 14.5 %; Mean Corpuscular HGB Conc 31.3 g/dL (31.6-35.5); Mean Corpuscular Hemoglobin 30.1 pg (28.0-33.3); Mean Corpuscular Volume 96.3 fL (83.0-100.0); Mean Platelet Volume 11.2 fL (9.4-12.4); Monocytes # 0.6 K/mcL (0.0-1.3); Monocytes % 9.5 %; Neutrophils # 4.4 K/mcL (1.6-8.9); Platelet Count 202 K/mcL (140-400); Red Blood Count 3.82 M/mcL (4.19-5.50); Segmented Neutrophils % 72.9 %
[2022-03-01 12:37] LABS: INR 1.1; Prothrombin Time 12.2 Seconds (9.4-12.1)
[2022-03-01 12:39] LABS: Activated Partial Thrombo Time 41.1 Seconds (26.0-36.0)
[2022-03-01] MEDS ORDERED: Iopamidol - 370 500 ML MLS IVP ONE (12:45)
[2022-03-01 12:54] LABS: Calcium 8.4 mg/dL (8.6-10.3); Potassium 4.2 mEq/L (3.5-5.1)
[2022-03-01 13:00] LABS: Troponin I 0.04 ng/mL (< 0.04)
[2022-03-01 13:41] LABS: Influenza A PCR Negative (Negative); Influenza B PCR Negative (Negative); Resp. Syncytial Virus PCR Negative (Negative)
[2022-03-01 14:34] LABS: SARS-CoV-2 by PCR (In House) Negative (Negative)
[2022-03-01] MEDS ORDERED: Furosemide 40 MG/4 ML VIAL IVP ONE (14:48)
[2022-03-01] MEDS ORDERED: D5% in Water 1,000 ML IVC PRN (15:11)
[2022-03-01] MEDS ORDERED: Dextrose Gel 15 GM/37.5 ML TUBE PO PRN ×2 (15:11)
[2022-03-01] MEDS ORDERED: Ondansetron 4 MG/2 ML VIAL IVP PRN (15:11)
[2022-03-01] MEDS ORDERED: Naloxone 0.4 MG/ML INJ IVP PRN (15:11)
[2022-03-01] MEDS: *HR* HYDROcodone/Acet 5/325 mg TABLET PO PRN ×2 (16:55→22:57)
[2022-03-01] MEDS: *HR* Heparin 5,000 UNIT/ML VIAL SQ SCH (18:46)
[2022-03-01] MEDS: Acetaminophen 325 MG TABLET PO PRN (18:46)
[2022-03-02 01:49] LABS: Hematocrit 35.9 % (37.5-50.1); Hemoglobin 11.6 g/dL (12.9-16.9); Red Blood Count 3.83 M/mcL (4.19-5.50); White Blood Count 5.5 K/mcL (4.3-11.1)
[2022-03-02 01:50] LABS: Basophils # 0.1 K/mcL (0.0-0.2); Basophils % 1.5 %; Eosinophils # 0.1 K/mcL (0.0-0.6); Eosinophils % 2.6 %; Immature Granulocytes % 0.4 % (0-4); Lymphocytes # 1.4 K/mcL (0.6-4.6); Lymphocytes % 26.2 %; Mean Corpuscular HGB Conc 32.3 g/dL (31.6-35.5); Mean Corpuscular Hemoglobin 30.3 pg (28.0-33.3); Mean Corpuscular Volume 93.7 fL (83.0-100.0); Mean Platelet Volume 10.9 fL (9.4-12.4); Monocytes # 0.7 K/mcL (0.0-1.3); Monocytes % 13.1 %; Neutrophils # 3.1 K/mcL (1.6-8.9); Platelet Count 211 K/mcL (140-400); Segmented Neutrophils % 56.2 %
[2022-03-02 02:10] LABS: Calcium 8.6 mg/dL (8.6-10.3); Chol/HDL Ratio 2.9 (0-4.9); Magnesium 1.9 mg/dL (1.6-2.6); Phosphorous 3.4 mg/dL (2.7-4.5); Potassium 3.9 mEq/L (3.5-5.1)
[2022-03-02] MEDS: *HR* Heparin 5,000 UNIT/ML VIAL SQ SCH ×2 (05:03→20:21)
[2022-03-02] MEDS: *HR* HYDROcodone/Acet 5/325 mg TABLET PO PRN ×2 (05:03→14:11)
[2022-03-02] MEDS ORDERED: Furosemide 40 MG/4 ML VIAL IVP SCH (09:00)
[2022-03-02] MEDS: Cholecalciferol (D-3) 1,000 UNIT (25MCG) TABLET PO SCH (09:22)
[2022-03-02] MEDS: Aspirin 81 MG TAB.CHEW PO SCH (09:23)
[2022-03-02 10:00] LABS: RBC,Pleural Fluid 146000 RBC/mcL
[2022-03-02 10:01] LABS: Total Protein,Pleural Fluid 4.2 g/dL
[2022-03-02] MEDS: *HR* OxyCODONE Immed Rel 5 MG TABLET PO PRN (11:02)
[2022-03-02 11:42] LABS: Appearance of Pleural Fl Bloody (Clear); Basophils,Pleural Fluid 0 %; Eosinophils,Pleural Fluid 0 %
[2022-03-02] MEDS ORDERED: methylPREDNISolone 125 MG/2 ML VIAL IVP ONE (16:03)
[2022-03-02] MEDS ORDERED: Famotidine 20 MG/2 ML VIAL IVP ONE (16:04)
[2022-03-02] MEDS: carvediloL 6.25 MG TABLET PO SCH (16:25)
[2022-03-02] MEDS ORDERED: Ipratropium Neb 0.5 MG NEBULIZER IH PRN (17:01)
[2022-03-02] MEDS: NIFEdipine XL (24 HR) 30 MG TAB.ER.24 PO SCH (17:04)
[2022-03-02] MEDS ORDERED: Albumin 25% 25gram/100mL 25 GM/100 ML IV.SOLN IVPB ONE (19:03)
[2022-03-02] MEDS: Milrinone Premix 20 MG/100 ML 20 MG/100 ML BAG IVC SCH (19:09)
[2022-03-03] MEDS ORDERED: *HR* Heparin 5,000 UNIT/ML VIAL IVP ONE (01:22)
[2022-03-03] MEDS ORDERED: *HR* Heparin 5,000 UNIT/ML VIAL IVP PRN ×2 (01:22)
[2022-03-03] MEDS ORDERED: Heparin 25,000UNIT/250ML 1/2NS 25,000 UNIT/250 ML IV.SOLN IVC SCH (01:30)
[2022-03-03 05:37] LABS: Hematocrit 34.2 % (37.5-50.1); Mean Corpuscular HGB Conc 32.2 g/dL (31.6-35.5); Mean Corpuscular Hemoglobin 29.5 pg (28.0-33.3); Mean Corpuscular Volume 91.7 fL (83.0-100.0); Mean Platelet Volume 11.7 fL (9.4-12.4); Platelet Count 201 K/mcL (140-400); Red Blood Count 3.73 M/mcL (4.19-5.50); Red Cell Distribution Width 13.8 % (11.5-14.5)
[2022-03-03 05:41] LABS: White Blood Count 14.3 K/mcL (4.3-11.1)
[2022-03-03 05:43] LABS: Heparin anti-factor XA UFH 0.05 IU/mL (0.30-0.70)
[2022-03-03 05:44] LABS: INR 1.2
[2022-03-03 06:02] LABS: Albumin 3.9 g/dL (3.5-5.7); Albumin/Globulin Ratio 1.6 (1.1-2.2); Bilirubin,Total 0.7 mg/dL (0.3-1.0); Calcium 8.4 mg/dL (8.6-10.3); Globulin 2.4 g/dL (2.4-3.5); Potassium 4.9 mEq/L (3.5-5.1); Total Protein 6.3 g/dL (6.4-8.9)
[2022-03-03] MEDS: carvediloL 6.25 MG TABLET PO SCH (09:04)
[2022-03-03] MEDS: Aspirin 81 MG TAB.CHEW PO SCH (09:05)
[2022-03-03] MEDS: Cholecalciferol (D-3) 1,000 UNIT (25MCG) TABLET PO SCH (09:05)
[2022-03-03] MEDS: NIFEdipine XL (24 HR) 30 MG TAB.ER.24 PO SCH (09:06)
[2022-03-03] MEDS: Milrinone Premix 20 MG/100 ML 20 MG/100 ML BAG IVC SCH (09:06)
[2022-03-03 13:03] LABS: Calcium 7.7 mg/dL (8.6-10.3); Potassium 4.7 mEq/L (3.5-5.1)
[2022-03-03] MEDS: Cefepime HCl 2,000 MG in 0.9 % Sodium Chloride 10 ML IVP SCH (16:17)
[2022-03-03] MEDS: Azithromycin 250 MG TABLET PO SCH (16:17)
[2022-03-03] MEDS: Albumin 25% 12.5gm/50mL 12.5 GM/50 ML IV.SOLN IVPB SCH (16:18)
[2022-03-03] MEDS: *HR* OxyCODONE Immed Rel 5 MG TABLET PO PRN (18:16)
[2022-03-03] MEDS: *HR* Heparin 5,000 UNIT/ML VIAL SQ SCH (21:00)
[2022-03-03] MEDS: metroNIDAZOLE 500 MG TABLET PO SCH (21:00)
[2022-03-03] MEDS ORDERED: Insulin DETEMIR 100 UNIT/ML X5UNITS SUBQ SCH (23:30)
[2022-03-04] MEDS: Cefepime HCl 2,000 MG in 0.9 % Sodium Chloride 10 ML IVP SCH ×2 (01:14→09:48)
[2022-03-04] MEDS: Albumin 25% 12.5gm/50mL 12.5 GM/50 ML IV.SOLN IVPB SCH ×3 (01:14→16:06)
[2022-03-04 01:43] LABS: Fluid Source for Cholesterol PLEURAL FLUID
[2022-03-04] MEDS: *HR* OxyCODONE Immed Rel 5 MG TABLET PO PRN ×2 (05:46→18:40)
[2022-03-04] MEDS: *HR* Heparin 5,000 UNIT/ML VIAL SQ SCH (05:47)
[2022-03-04] MEDS ORDERED: Insulin LISPRO 300 UNITS/3 ML VIAL SUBQ SCH ×2 (07:30→21:00)
[2022-03-04 08:59] LABS: Basophils % 0.1 %; Eosinophils % 0.1 %; Hematocrit 29.1 % (37.5-50.1); Hemoglobin 9.5 g/dL (12.9-16.9); Immature Granulocytes % 0.4 % (0-4); Lymphocytes % 7.1 %; Mean Corpuscular HGB Conc 32.6 g/dL (31.6-35.5); Mean Corpuscular Hemoglobin 29.9 pg (28.0-33.3); Mean Corpuscular Volume 91.5 fL (83.0-100.0); Mean Platelet Volume 11.8 fL (9.4-12.4); Monocytes # 1.1 K/mcL (0.0-1.3); Monocytes % 7.3 %; Neutrophils # 12.4 K/mcL (1.6-8.9); Platelet Count 162 K/mcL (140-400); Red Blood Count 3.18 M/mcL (4.19-5.50); Red Cell Distribution Width 13.8 % (11.5-14.5); White Blood Count 14.6 K/mcL (4.3-11.1)
[2022-03-04 09:21] LABS: Potassium 5.2 mEq/L (3.5-5.1)
[2022-03-04] MEDS: metroNIDAZOLE 500 MG TABLET PO SCH ×3 (09:52→21:04)
[2022-03-04] MEDS: Aspirin 81 MG TAB.CHEW PO SCH (09:52)
[2022-03-04] MEDS: Cholecalciferol (D-3) 1,000 UNIT (25MCG) TABLET PO SCH (09:53)
[2022-03-04] MEDS: carvediloL 6.25 MG TABLET PO SCH ×3 (09:54→16:04)
[2022-03-04] MEDS ORDERED: Insulin Human Regular 10 UNIT in 0.9 % Sodium Chloride 10 ML IV ONE (10:33)
[2022-03-04] MEDS: Insulin DETEMIR 100 UNIT/ML X5UNITS SUBQ SCH ×2 (12:31→21:30)
[2022-03-04] MEDS: Insulin LISPRO 300 UNITS/3 ML VIAL SUBQ SCH ×3 (13:42→21:03)
[2022-03-04 14:50] LABS: Bilirubin,Urine Negative (Negative); Blood,Urine Negative (Negative); Clarity,Urine Clear (Clear); Color,Urine Light-Yellow (Yellow); Glucose,Urine (UA) >=1000 mg/dL (Normal); Ketones,Urine Negative (Negative); Leukocyte Esterase,Urine Negative (Negative); Mucus,Urine Few per lpf (None-Few); Nitrite,Urine Negative (Negative); Protein,Urine Trace mg/dL (Neg-Trace); Specific Gravity,Urine 1.017 (1.010-1.025); Squamous Epithelial Cell,Urine Few per hpf (None-Few); Urobilinogen,Urine Normal (Normal); WBC,Urine 0-3 per hpf (0-3)
[2022-03-04 14:52] LABS: Cholesterol,Body Fluid 85 mg/dL
[2022-03-04 14:57] LABS: Sodium, Urine 33.9 mEq/L
[2022-03-04] MEDS: Azithromycin 250 MG TABLET PO SCH (16:04)
[2022-03-04] MEDS ORDERED: Insulin DETEMIR 100 UNIT/ML X5UNITS SUBQ SCH (21:00)
[2022-03-04] MEDS: Apixaban 5 MG TABLET PO SCH (21:04)
[2022-03-05] MEDS: *HR* Dextrose 50 % in Water (Syg) 50 ML SYRINGE IVP PRN ×2 (01:34→07:18)
[2022-03-05] MEDS: Albumin 25% 12.5gm/50mL 12.5 GM/50 ML IV.SOLN IVPB SCH ×3 (01:35→16:14)
[2022-03-05] MEDS: *HR* OxyCODONE Immed Rel 5 MG TABLET PO PRN (02:29)
[2022-03-05] MEDS: Insulin LISPRO 300 UNITS/3 ML VIAL SUBQ SCH ×4 (07:13→20:03)
[2022-03-05] MEDS: Aspirin 81 MG TAB.CHEW PO SCH (08:21)
[2022-03-05] MEDS: carvediloL 6.25 MG TABLET PO SCH ×2 (08:21→16:11)
[2022-03-05] MEDS: *HR* HYDROcodone/Acet 5/325 mg TABLET PO PRN ×2 (08:21→16:19)
[2022-03-05] MEDS: metroNIDAZOLE 500 MG TABLET PO SCH ×2 (08:21→16:11)
[2022-03-05] MEDS: Cholecalciferol (D-3) 1,000 UNIT (25MCG) TABLET PO SCH (08:21)
[2022-03-05] MEDS: Apixaban 5 MG TABLET PO SCH ×2 (08:21→20:03)
[2022-03-05 09:00] LABS: Basophils % 0.4 %; Eosinophils # 0.1 K/mcL (0.0-0.6); Eosinophils % 1.1 %; Hematocrit 28.7 % (37.5-50.1); Hemoglobin 9.2 g/dL (12.9-16.9); Immature Granulocytes % 0.4 % (0-4); Lymphocytes % 10.5 %; Mean Corpuscular HGB Conc 32.1 g/dL (31.6-35.5); Mean Corpuscular Hemoglobin 29.4 pg (28.0-33.3); Mean Corpuscular Volume 91.7 fL (83.0-100.0); Mean Platelet Volume 11.8 fL (9.4-12.4); Monocytes # 0.8 K/mcL (0.0-1.3); Monocytes % 8.8 %; Neutrophils # 7.3 K/mcL (1.6-8.9); Platelet Count 161 K/mcL (140-400); Red Blood Count 3.13 M/mcL (4.19-5.50); Red Cell Distribution Width 13.7 % (11.5-14.5); Segmented Neutrophils % 78.8 %; White Blood Count 9.2 K/mcL (4.3-11.1)
[2022-03-05 09:38] LABS: Potassium 4.4 mEq/L (3.5-5.1)
[2022-03-05] MEDS: *HR* Heparin 5,000 UNIT/ML VIAL SQ SCH (09:38)
[2022-03-05] MEDS ORDERED: Cefepime HCl 1,000 MG in 0.9 % Sodium Chloride 10 ML IVP SCH (10:00)
[2022-03-05] MEDS: Acetaminophen 325 MG TABLET PO PRN (11:16)
[2022-03-05] MEDS: Ipratropium/Albuterol Neb 3 ML IH SCH ×3 (15:44→20:18)
[2022-03-05] MEDS: Budesonide/Formoterol 160/4.5 1 PUFF INH IH SCH ×2 (15:45→20:18)
[2022-03-05] MEDS: Azithromycin 250 MG TABLET PO SCH (16:11)
[2022-03-05] MEDS: Isosorbide MONOnitrate (24 HR) 30 MG TAB.ER.24H PO SCH (16:13)
[2022-03-05] MEDS: levoFLOXacin 750 MG/150 ML 750 MG/150 ML BAG IVPB SCH (20:02)
[2022-03-05] MEDS: Pantoprazole 40 MG VIAL IVP SCH (20:02)
[2022-03-05] MEDS: Insulin DETEMIR 100 UNIT/ML X5UNITS SUBQ SCH (20:03)
[2022-03-06] MEDS: Albumin 25% 12.5gm/50mL 12.5 GM/50 ML IV.SOLN IVPB SCH ×3 (00:33→16:41)
[2022-03-06] MEDS: *HR* HYDROcodone/Acet 5/325 mg TABLET PO PRN ×5 (00:33→20:03)
[2022-03-06 01:44] LABS: Hematocrit 27.8 % (37.5-50.1); Hemoglobin 8.8 g/dL (12.9-16.9); Mean Corpuscular HGB Conc 31.7 g/dL (31.6-35.5); Mean Corpuscular Hemoglobin 29.2 pg (28.0-33.3); Mean Corpuscular Volume 92.4 fL (83.0-100.0); Mean Platelet Volume 11.4 fL (9.4-12.4); Platelet Count 148 K/mcL (140-400); Red Blood Count 3.01 M/mcL (4.19-5.50); Red Cell Distribution Width 13.6 % (11.5-14.5); White Blood Count 7.5 K/mcL (4.3-11.1)
[2022-03-06 02:03] LABS: Calcium 8.6 mg/dL (8.6-10.3); Potassium 5.4 mEq/L (3.5-5.1)
[2022-03-06] MEDS: Ipratropium/Albuterol Neb 3 ML IH SCH ×4 (04:03→21:55)
[2022-03-06] MEDS: Acetaminophen 325 MG TABLET PO PRN (06:48)
[2022-03-06] MEDS: carvediloL 6.25 MG TABLET PO SCH ×2 (07:53→16:41)
[2022-03-06] MEDS: Aspirin 81 MG TAB.CHEW PO SCH (07:53)
[2022-03-06] MEDS: Cholecalciferol (D-3) 1,000 UNIT (25MCG) TABLET PO SCH (07:53)
[2022-03-06] MEDS: Isosorbide MONOnitrate (24 HR) 30 MG TAB.ER.24H PO SCH (07:53)
[2022-03-06] MEDS: Apixaban 5 MG TABLET PO SCH (07:53)
[2022-03-06] MEDS: Pantoprazole 40 MG VIAL IVP SCH (07:54)
[2022-03-06] MEDS: Insulin LISPRO 300 UNITS/3 ML VIAL SUBQ SCH ×4 (08:04→19:33)
[2022-03-06] MEDS: Budesonide/Formoterol 160/4.5 1 PUFF INH IH SCH ×2 (08:05→21:55)
[2022-03-06] MEDS ORDERED: Nitroglycerin 0.4 MG TAB.SUBL SL ONE (08:43)
[2022-03-06] MEDS ORDERED: Isosorbide MONOnitrate (24 HR) 30 MG TAB.ER.24H PO ONE (09:11)
[2022-03-06] MEDS ORDERED: carvediloL 6.25 MG TABLET PO ONE (09:13)
[2022-03-06] MEDS ORDERED: SODIUM ZIRCONIUM CYCLOSILICATE 5 GM POWD.PACK PO ONE (10:35)
[2022-03-06] MEDS: Insulin DETEMIR 100 UNIT/ML X5UNITS SUBQ SCH (19:26)
[2022-03-07] MEDS: *HR* HYDROcodone/Acet 5/325 mg TABLET PO PRN ×4 (01:24→16:56)
[2022-03-07] MEDS: Albumin 25% 12.5gm/50mL 12.5 GM/50 ML IV.SOLN IVPB SCH ×2 (01:24→07:57)
[2022-03-07 01:55] LABS: Hematocrit 21.3 % (37.5-50.1); Mean Corpuscular HGB Conc 31.5 g/dL (31.6-35.5); Mean Corpuscular Hemoglobin 29.9 pg (28.0-33.3); Mean Corpuscular Volume 95.1 fL (83.0-100.0); Mean Platelet Volume 11.5 fL (9.4-12.4); Platelet Count 122 K/mcL (140-400); Red Blood Count 2.24 M/mcL (4.19-5.50); Red Cell Distribution Width 13.6 % (11.5-14.5); White Blood Count 4.6 K/mcL (4.3-11.1)
[2022-03-07 01:56] LABS: Hemoglobin 6.7 g/dL (12.9-16.9)
[2022-03-07 02:31] LABS: Calcium 6.7 mg/dL (8.6-10.3); Magnesium 1.4 mg/dL (1.6-2.6)
[2022-03-07] MEDS: Ipratropium/Albuterol Neb 3 ML IH SCH ×4 (03:57→22:37)
[2022-03-07 06:39] LABS: Albumin 4.4 g/dL (3.5-5.7); Albumin/Globulin Ratio 2.1 (1.1-2.2); Bilirubin,Total 0.5 mg/dL (0.3-1.0); Calcium 9.2 mg/dL (8.6-10.3); Globulin 2.1 g/dL (2.4-3.5); Magnesium 2.1 mg/dL (1.6-2.6); Potassium 4.9 mEq/L (3.5-5.1); Total Protein 6.5 g/dL (6.4-8.9)
[2022-03-07 06:54] LABS: Basophils % 0.5 %; Eosinophils # 0.1 K/mcL (0.0-0.6); Eosinophils % 2.2 %; Hemoglobin 9.3 g/dL (12.9-16.9); Lymphocytes # 0.9 K/mcL (0.6-4.6); Lymphocytes % 14.9 %; Mean Corpuscular HGB Conc 32.1 g/dL (31.6-35.5); Mean Corpuscular Hemoglobin 29.6 pg (28.0-33.3); Mean Corpuscular Volume 92.4 fL (83.0-100.0); Mean Platelet Volume 11.9 fL (9.4-12.4); Monocytes # 0.6 K/mcL (0.0-1.3); Monocytes % 9.3 %; Neutrophils # 4.3 K/mcL (1.6-8.9); Platelet Count 146 K/mcL (140-400); Red Blood Count 3.14 M/mcL (4.19-5.50); Red Cell Distribution Width 13.7 % (11.5-14.5); Segmented Neutrophils % 72.1 %; White Blood Count 5.9 K/mcL (4.3-11.1)
[2022-03-07] MEDS: carvediloL 6.25 MG TABLET PO SCH ×2 (07:56→16:40)
[2022-03-07] MEDS: Aspirin 81 MG TAB.CHEW PO SCH (07:56)
[2022-03-07] MEDS: Isosorbide MONOnitrate (24 HR) 60 MG TAB.ER.24H PO SCH (07:56)
[2022-03-07] MEDS: Insulin LISPRO 300 UNITS/3 ML VIAL SUBQ SCH ×4 (07:57→19:41)
[2022-03-07] MEDS: Cholecalciferol (D-3) 1,000 UNIT (25MCG) TABLET PO SCH (07:59)
[2022-03-07] MEDS: Pantoprazole 40 MG VIAL IVP SCH (08:00)
[2022-03-07] MEDS ORDERED: *HR* LORazepam 0.5 MG TABLET PO ONE ×2 (09:33→16:02)
[2022-03-07] MEDS: Budesonide/Formoterol 160/4.5 1 PUFF INH IH SCH ×2 (09:50→22:37)
[2022-03-07] MEDS: Apixaban 5 MG TABLET PO SCH ×2 (09:53→19:35)
[2022-03-07] MEDS: amLODIPine 5 MG TABLET PO SCH (12:40)
[2022-03-07] MEDS: levoFLOXacin 750 MG/150 ML 750 MG/150 ML BAG IVPB SCH (19:35)
[2022-03-07] MEDS: Insulin DETEMIR 100 UNIT/ML X5UNITS SUBQ SCH (19:39)
[2022-03-07] MEDS: *HR* HYDROcodone/Acet 10/325 mg TABLET PO PRN (21:20)
[2022-03-08] MEDS: *HR* HYDROcodone/Acet 5/325 mg TABLET PO PRN ×4 (01:42→19:09)
[2022-03-08 04:00] LABS: Basophils # 0.1 K/mcL (0.0-0.2); Basophils % 0.9 %; Eosinophils # 0.2 K/mcL (0.0-0.6); Eosinophils % 2.5 %; Hemoglobin 9.5 g/dL (12.9-16.9); Immature Granulocytes % 1.6 % (0-4); Lymphocytes % 14.3 %; Mean Corpuscular HGB Conc 31.7 g/dL (31.6-35.5); Mean Corpuscular Hemoglobin 29.2 pg (28.0-33.3); Mean Corpuscular Volume 92.3 fL (83.0-100.0); Mean Platelet Volume 11.1 fL (9.4-12.4); Monocytes # 0.8 K/mcL (0.0-1.3); Monocytes % 12.1 %; Neutrophils # 4.8 K/mcL (1.6-8.9); Platelet Count 167 K/mcL (140-400); Red Blood Count 3.25 M/mcL (4.19-5.50); Red Cell Distribution Width 13.6 % (11.5-14.5); Segmented Neutrophils % 68.6 %; White Blood Count 6.9 K/mcL (4.3-11.1)
[2022-03-08] MEDS: Ipratropium/Albuterol Neb 3 ML IH SCH ×2 (04:06→11:03)
[2022-03-08 04:19] LABS: Calcium 9.2 mg/dL (8.6-10.3); Magnesium 1.8 mg/dL (1.6-2.6); Potassium 4.8 mEq/L (3.5-5.1)
[2022-03-08] MEDS: Aspirin 81 MG TAB.CHEW PO SCH (08:25)
[2022-03-08] MEDS: Pantoprazole 40 MG VIAL IVP SCH (08:25)
[2022-03-08] MEDS: amLODIPine 5 MG TABLET PO SCH (08:25)
[2022-03-08] MEDS: carvediloL 6.25 MG TABLET PO SCH ×2 (08:25→17:19)
[2022-03-08] MEDS: Isosorbide MONOnitrate (24 HR) 60 MG TAB.ER.24H PO SCH (08:25)
[2022-03-08] MEDS: Cholecalciferol (D-3) 1,000 UNIT (25MCG) TABLET PO SCH (08:25)
[2022-03-08] MEDS: Apixaban 5 MG TABLET PO SCH ×2 (08:25→21:18)
[2022-03-08] MEDS: *HR* LORazepam 0.5 MG TABLET PO PRN (09:44)
[2022-03-08] MEDS: Insulin LISPRO 300 UNITS/3 ML VIAL SUBQ SCH ×4 (09:45→21:11)
[2022-03-08] MEDS: Budesonide/Formoterol 160/4.5 1 PUFF INH IH SCH ×2 (11:03→20:14)
[2022-03-08] MEDS ORDERED: amLODIPine 5 MG TABLET PO SCH (12:00)
[2022-03-08] MEDS ORDERED: Ipratropium/Albuterol Neb 3 ML IH PRN (14:25)
[2022-03-08] MEDS: hydrALAZINE 10 MG TABLET PO SCH (17:19)
[2022-03-08] MEDS: Insulin DETEMIR 100 UNIT/ML X5UNITS SUBQ SCH (21:12)
[2022-03-09] MEDS: hydrALAZINE 10 MG TABLET PO SCH ×3 (01:53→16:58)
[2022-03-09] MEDS: *HR* HYDROcodone/Acet 5/325 mg TABLET PO PRN ×3 (02:08→16:58)
[2022-03-09 04:48] LABS: Hematocrit 29.5 % (37.5-50.1); Hemoglobin 9.9 g/dL (12.9-16.9); Mean Corpuscular HGB Conc 33.6 g/dL (31.6-35.5); Mean Corpuscular Hemoglobin 30.7 pg (28.0-33.3); Mean Corpuscular Volume 91.3 fL (83.0-100.0); Mean Platelet Volume 11.5 fL (9.4-12.4); Platelet Count 151 K/mcL (140-400); Red Blood Count 3.23 M/mcL (4.19-5.50); Red Cell Distribution Width 13.7 % (11.5-14.5); White Blood Count 7.6 K/mcL (4.3-11.1)
[2022-03-09 05:02] LABS: Calcium 9.1 mg/dL (8.6-10.3); Magnesium 1.8 mg/dL (1.6-2.6); Potassium 4.8 mEq/L (3.5-5.1)
[2022-03-09] MEDS: Budesonide/Formoterol 160/4.5 1 PUFF INH IH SCH ×2 (08:12→20:16)
[2022-03-09] MEDS: Isosorbide MONOnitrate (24 HR) 60 MG TAB.ER.24H PO SCH (08:18)
[2022-03-09] MEDS: amLODIPine 5 MG TABLET PO SCH (08:18)
[2022-03-09] MEDS: Apixaban 5 MG TABLET PO SCH ×2 (08:18→20:41)
[2022-03-09] MEDS: Insulin LISPRO 300 UNITS/3 ML VIAL SUBQ SCH ×4 (08:19→20:41)
[2022-03-09] MEDS: carvediloL 6.25 MG TABLET PO SCH ×2 (08:19→16:58)
[2022-03-09] MEDS: Cholecalciferol (D-3) 1,000 UNIT (25MCG) TABLET PO SCH (08:19)
[2022-03-09] MEDS: Aspirin 81 MG TAB.CHEW PO SCH (08:19)
[2022-03-09] MEDS: lisinopriL 5 MG TABLET PO SCH (14:31)
[2022-03-09] MEDS ORDERED: levoFLOXacin 750 MG TABLET PO SCH ×2 (19:00→20:00)
[2022-03-09] MEDS: Insulin DETEMIR 100 UNIT/ML X5UNITS SUBQ SCH (20:40)
[2022-03-09] MEDS: *HR* HYDROcodone/Acet 10/325 mg TABLET PO PRN (20:41)
[2022-03-09] MEDS: *HR* LORazepam 0.5 MG TABLET PO PRN (22:15)
[2022-03-10] MEDS: hydrALAZINE 10 MG TABLET PO SCH ×2 (01:50→07:45)
[2022-03-10] MEDS ORDERED: Insulin LISPRO 300 UNITS/3 ML VIAL SUBQ SCH (03:03)
[2022-03-10 05:24] LABS: Hematocrit 32.4 % (37.5-50.1); Hemoglobin 10.4 g/dL (12.9-16.9); Mean Corpuscular HGB Conc 32.1 g/dL (31.6-35.5); Mean Corpuscular Hemoglobin 30.1 pg (28.0-33.3); Mean Corpuscular Volume 93.9 fL (83.0-100.0); Mean Platelet Volume 11.3 fL (9.4-12.4); Platelet Count 164 K/mcL (140-400); Red Blood Count 3.45 M/mcL (4.19-5.50); White Blood Count 7.7 K/mcL (4.3-11.1)
[2022-03-10 06:55] LABS: Calcium 9.3 mg/dL (8.6-10.3); Magnesium 1.8 mg/dL (1.6-2.6); Potassium 4.9 mEq/L (3.5-5.1)
[2022-03-10 07:13] VITALS: O2SAT 94
[2022-03-10] MEDS: Cholecalciferol (D-3) 1,000 UNIT (25MCG) TABLET PO SCH (07:45)
[2022-03-10] MEDS: Apixaban 5 MG TABLET PO SCH (07:45)
[2022-03-10] MEDS: Aspirin 81 MG TAB.CHEW PO SCH (07:45)
[2022-03-10] MEDS: lisinopriL 5 MG TABLET PO SCH (07:45)
[2022-03-10] MEDS: carvediloL 6.25 MG TABLET PO SCH (07:45)
[2022-03-10] MEDS: amLODIPine 5 MG TABLET PO SCH (07:45)
[2022-03-10] MEDS: Isosorbide MONOnitrate (24 HR) 60 MG TAB.ER.24H PO SCH (07:45)
[2022-03-10] MEDS: Insulin LISPRO 300 UNITS/3 ML VIAL SUBQ SCH ×2 (07:46→11:05)
[2022-03-10] MEDS: Budesonide/Formoterol 160/4.5 1 PUFF INH IH SCH (07:59)
[2022-03-10] MEDS: *HR* HYDROcodone/Acet 10/325 mg TABLET PO PRN (11:05)
[2022-03-10 11:07] VITALS: BP 124/54; PULSE 73; TEMP 97.6
== END 2022-03-10 12:29 | disposition home or self-care (01) | DRG 871 ==
LOC: EMEROOARM 09:27 → 3BNU 09:27 → SUATTDRO 17:47 → 3BNU 18:25 → 2NNU 03-02 18:44 → SUATTDRO 03-03 18:56 → 2NENU 03-08 00:13
PROVIDERS: ADMIT Internal Medicine; ATTEND Internal Medicine